=== PATIENT | male | born 1990 | race African-American/Black ===

== ENCOUNTER 2019-10-12 18:54 | Emergency (ER) | payer OTHER ==
[~2019-10-12] VITALS: Ht 175.3 cm; Wt 68.0 kg
[2019-10-12 19:20] LABS: URINE BILIRUBIN NEGATIVE (Negative); URINE BLOOD 1+ (Negative); URINE CLARITY CLEAR; URINE COLOR YELLOW; URINE GLUCOSE-RANDOM* NEGATIVE (Negative); URINE KETONES NEGATIVE (Negative); URINE NITRITE-REFLEX NEGATIVE (Negative); URINE PROTEIN (DIPSTICK) NEGATIVE (Negative); URINE SPECIFIC GRAVITY <= 1.005 (1.005-1.035); URINE UROBILINOGEN 0.2 E.U./dl (0.2-1.0)
[2019-10-12 19:24] LABS: URINE LEUKOCYTES-REFLEX 3+ (Negative)
[2019-10-12 19:36] LABS: SQUAMOUS 0-3 Few /LPF (0-3); URINE WBC-REFLEX >25 Many /HPF (0-5)
[2019-10-12 19:37] LABS: BACTERIA-REFLEX 1-9 Few /HPF (None Seen); CASTS None Seen /LPF (None Seen); CRYSTALS None Seen /LPF (None Seen); URINE RBC 0-2 Rare /HPF (0-2)
[2019-10-12 20:37] LABS: ABSOLUTE NEUTROPHILS 5.5 thou/uL (1.4-8.2); BASOPHILS 0.7 % (0.0-2.0); EOSINOPHILS 1.8 % (0.0-3.0); HEMATOCRIT 40.1 % (42.0-52.0); HEMOGLOBIN 13.3 gm/dL (14.0-18.0); LYMPHOCYTES 13.8 % (24.0-44.0); MCHC 33.2 g/dL (28.0-37.0); MCV 81.2 fL (80.0-100.0); MONOCYTES 10.6 % (1.0-8.0); PLATELET COUNT 427 thou/uL (150-400); POLYS 73.1 % (36.0-66.0); RBC 4.94 mil/uL (4.50-6.00); RDW 13.6 % (10.5-14.5); WBC 7.5 thou/uL (4.0-11.0)
[2019-10-12 20:46] LABS: CALCIUM 9.3 mg/dL (8.5-10.1); CREATININE 0.7 mg/dL (0.7-1.3)
[2019-10-12 20:52] LABS: ALBUMIN 3.2 g/dL (3.4-5.0); TOTAL BILIRUBIN 0.2 mg/dL (0.2-1.0); TOTAL PROTEIN 8.4 g/dL (6.4-8.2)
[2019-10-12] MEDS ORDERED: ONDANSETRON HCL4 M2 PO (21:59)
[2019-10-12] MEDS ORDERED: BACTRIM DS TAB1 EACH PO (21:59)
[2019-10-12] MEDS ORDERED: MIRALAX17 GM PO (22:06)
[2019-10-12 22:19] VITALS: BP 137/87
== END 2019-10-12 22:31 | disposition home or self-care (01) ==
LOC: ER 18:54
PROVIDERS: Emergency Medicine; Physician Assistant
DX: N39.0 Urinary tract infection, site not specified (principal); K59.00 Constipation, unspecified; R11.2 Nausea with vomiting, unspecified; R30.0 Dysuria; R31.9 Hematuria, unspecified

== ENCOUNTER 2019-11-17 09:28 | Emergency (ER) | payer OTHER ==
[~2019-11-17] VITALS: Ht 172.7 cm; Wt 63.5 kg
[~2019-11-17 09:28] MED LIST: BACTRIM DS TAB1 EACH PO; MIRALAX17 GM PO; ONDANSETRON HCL4 M2 PO
[2019-11-17 10:21] LABS: URINE BILIRUBIN NEGATIVE (Negative); URINE BLOOD 3+ (Negative); URINE CLARITY CLOUDY; URINE COLOR YELLOW; URINE GLUCOSE-RANDOM* NEGATIVE (Negative); URINE KETONES NEGATIVE (Negative); URINE NITRITE-REFLEX NEGATIVE (Negative); URINE PROTEIN (DIPSTICK) 2+ (Negative); URINE SPECIFIC GRAVITY 1.025 (1.005-1.035)
[2019-11-17 10:22] LABS: URINE LEUKOCYTES-REFLEX 3+ (Negative)
[2019-11-17 10:48] LABS: CASTS None Seen /LPF (None Seen); CRYSTALS None Seen /LPF (None Seen); SQUAMOUS 0-3 Few /LPF (0-3); URINE RBC >20 Many /HPF (0-2)
[2019-11-17 10:49] LABS: BACTERIA-REFLEX >30 Many /HPF (None Seen); WBC CLUMPS Packed (None Seen)
[2019-11-17 11:31] LABS: HEMOGLOBIN 10.8 gm/dL (14.0-18.0); MCH 26.6 pg (26.0-34.0); MCHC 33.7 g/dL (28.0-37.0); PLATELET COUNT 516 thou/uL (150-400); RBC 4.06 mil/uL (4.50-6.00); RDW 14.3 % (10.5-14.5); WBC 8.5 thou/uL (4.0-11.0)
[2019-11-17 11:45] LABS: CALCIUM 8.7 mg/dL (8.5-10.1); CREATININE 0.6 mg/dL (0.7-1.3); POTASSIUM 3.7 mmol/L (3.5-5.1)
[2019-11-17 12:49] LABS: ABSOLUTE NEUTROPHILS 6.5 thou/uL (1.4-8.2)
[2019-11-17 12:50] LABS: ANISOCYTOSIS 1+
[2019-11-17] MEDS ORDERED: MACROBID 100 M100 M1 PO (15:20)
[2019-11-17] MEDS ORDERED: ZOFRAN4 MG PO (15:20)
[2019-11-17 15:47] VITALS: BP 118/82
== END 2019-11-17 15:47 | disposition home or self-care (01) ==
LOC: ER 09:28
PROVIDERS: Emergency Medicine
DX: N10 Acute pyelonephritis (principal); Z79.899 Other long term (current) drug therapy

== ENCOUNTER 2019-12-01 00:21 | Inpatient (IN) | payer OTHER ==
[2019-12-01] VITALS (7 sets, daily range): BP systolic 108–169; BP diastolic 70–112
[~2019-12-01] VITALS: Ht 172.7 cm; Wt 50.8 kg
[~2019-12-01 00:21] MED LIST changes: +MACROBID 100 M100 M1 PO; +ZOFRAN4 MG PO
[2019-12-01 01:24] LABS: ABSOLUTE NEUTROPHILS 9.2 thou/uL (1.4-8.2); BASOPHILS 0.7 % (0.0-2.0); EOSINOPHILS 0.5 % (0.0-3.0); HEMATOCRIT 35.1 % (42.0-52.0); HEMOGLOBIN 11.8 gm/dL (14.0-18.0); LYMPHOCYTES 9.7 % (24.0-44.0); MCH 26.8 pg (26.0-34.0); MCHC 33.7 g/dL (28.0-37.0); MCV 79.7 fL (80.0-100.0); MONOCYTES 11.5 % (1.0-8.0); PLATELET COUNT 563 thou/uL (150-400); POLYS 77.6 % (36.0-66.0); RBC 4.41 mil/uL (4.50-6.00); RDW 15.2 % (10.5-14.5); WBC 11.8 thou/uL (4.0-11.0)
[2019-12-01 01:27] LABS: CALCIUM 9.1 mg/dL (8.5-10.1); CREATININE 0.6 mg/dL (0.7-1.3); MAGNESIUM 2.2 mg/dL (1.8-2.4); POTASSIUM 4.3 mmol/L (3.5-5.1)
[2019-12-01 02:31] LABS: URINE BILIRUBIN 3+ (Negative); URINE BLOOD 2+ (Negative); URINE CLARITY TURBID; URINE COLOR GREEN; URINE GLUCOSE-RANDOM* NEGATIVE (Negative); URINE KETONES TRACE (Negative); URINE NITRITE-REFLEX NEGATIVE (Negative); URINE PROTEIN (DIPSTICK) 3+ (Negative); URINE SPECIFIC GRAVITY 1.025 (1.005-1.035); URINE UROBILINOGEN >= 8.0 E.U./dl (0.2-1.0)
[2019-12-01 02:44] LABS: URINE LEUKOCYTES-REFLEX 2+ (Negative)
[2019-12-01 02:45] LABS: BACTERIA-REFLEX >30 Many /HPF (None Seen); CASTS None Seen /LPF (None Seen); CRYSTALS None Seen /LPF (None Seen); MUCUS >6 Heavy strn/LPF (None Seen); SQUAMOUS 4-10 Moderate /LPF (0-3); URINE RBC >20 Many /HPF (0-2); URINE WBC-REFLEX >25 Many /HPF (0-5); WBC CLUMPS Many (None Seen); YEAST-REFLEX Present (None Seen)
[2019-12-01 02:47] LABS: AMP/METHAMP Negative (Negative); BARBITURATES Negative (Negative); BENZODIAZEPINES Negative (Negative); COCAINE Negative (Negative); METHADONE Negative (Negative); OPIATES Negative (Negative); PCP Negative (Negative)
[2019-12-01 05:00] LABS: APTT 33.2 Seconds (24.5-32.8); PROTIME 10.6 Seconds (9.3-11.4)
--- NOTE | 2019-12-01 06:22 | NUR ---
ADMITTED TO THE UNIT AT APPROXIMATELY 0600. PT IS A/O X4 AND UP ADLIB. C/O PAIN AND NAUSEA. PAIN AND NAUSEA MEDICATIONS GIVEN DIRECTED. ADMISSION COMPLETED AND DOCUMENTED. CALL LIGHT IS WITHIN REACH. WILL CONTINUE TO MONITOR.
--- NOTE | 2019-12-01 10:46 | NUR ---
ASSUMED CARE AT 0700. PT IS ALERT AND ORIENTED. NO COMPLAINTS. VSSA/RA. GI/- PT IS NPO. REPORTS OF GREEN URINE AND DIARHEA. PIV INFUSING. PAIN MEDS GIVEN ORDERED. PT IS STEADY 0N FEET. EDUCATED HIM TO CALL IF NEEDS ARISE. CALL LIGHT WITHIN REACH. WILL CONITNUE TO MONITOR. WAITING TO HEAR PLAN FOR TODAY...
--- NOTE | 2019-12-01 13:55 | NUR ---
PT ADMITTED RELATED TO ABDOMINAL PAIN, GREEN URINE, DIARRHEA, VOMMITTING. CM REVIEWED CHART AND SPOKE WITH CARE TEAM. CM CALLED AND SPOKE WITH PT AT BEDSIDE THIS DAY. PT APPEARED TO BE A&O X4. CM ROLE INTRODUCED. PT INDICATED HE LIVES IN AN APARTMENT WITH HIS FATHER WITH A FULL FLIGHT OF STEPS TO ENTER AND NONE INSIDE. 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 PT INDICATED NO INSURANCE AND NO PCP. PT WAS GIVEN A [employer] [facility] PACKET. PT INDICATED THAT HE COULD AFFORD TO FILL SCRIPTS IF GIVEN ANY UPON DC. PT INDICATED HE ANTICPATES RETURN HOME ONCE MEDICALLT STABLE. CM TO FOLLOW INDICATED WITH DC PLANNING.
--- NOTE | 2019-12-02 03:01 | NUR ---
ASSUMED CARE OF PT AT 1900. PT IS A/O X4. UP AD ANAID. C/O PAIN TO TESTICLES AND LOWER ABDOMEN ALONG WITH NAUSEA ASSOCIATED WITH PAIN. PRN PAIN AND NAUSEA MEDICATIONS GIVEN DIRECTED. PT IS LYING IN HIS BED AT THIS TIME AND APPEARS TO BE SLEEPING. CALL LIGHT IS WITHIN REACH. WILL CONTINUE TO MONITOR.
[2019-12-02 08:03] VITALS: BP 123/73
[2019-12-02 16:03] LABS: HEMATOCRIT 35.4 % (42.0-52.0); HEMOGLOBIN 11.5 gm/dL (14.0-18.0); MCHC 32.6 g/dL (28.0-37.0); MCV 79.9 fL (80.0-100.0); RBC 4.43 mil/uL (4.50-6.00); RDW 15.4 % (10.5-14.5); WBC 9.7 thou/uL (4.0-11.0)
[2019-12-02 16:14] LABS: CREATININE 0.6 mg/dL (0.7-1.3); MAGNESIUM 2.2 mg/dL (1.8-2.4)
--- NOTE | 2019-12-02 16:55 | NUR ---
ASSUMED CARE OF PATIENT AT SHIFT CHANGE. ASSESSMENT CHARTED. MEDS GIVEN PER MAY. PATIENT IS TACHYCARDIC. PATIENT WAS ACCIDENTALLY PUT ON TELEMETRY AND HIS HR INCREASED TO 150'S FOR APPROX 5 MINUTES. PROVIDER WAS CALLED AND AN EKG WAS PERFORMED AND REVEALED PATIENT IN NSR. LABS WERE DRAWN ORDERED. FLUIDS AND ABX INFUSING AT 150/HR ON L AC. IV SITE INTACT W NO ISSUES AFTER REDRESSING AND REPOSITIONING. PATIENT IS UP INDEPENDENLY AND CONTINUES TO VOICE ABDOMINAL PAIN AND DISCOMFORT. PRN PAIN MEDS ADMINISTERED ORDERED. PATIENT IS ON FULL LIQUIDS; PROVIDER SPOKE TO PATIENT ABOUT AN ADVANCE TOLERATED DIET. FAMILY AT BEDSIDE, VOICES NO OTHER NEEDS. WILL CONTINUE TO MONITOR AND FOLLOW PLAN OF CARE
[2019-12-02 17:31] VITALS: BP 145/92
[2019-12-02 23:35] VITALS: BP 113/73
--- NOTE | 2019-12-03 04:40 | NUR ---
ASSUMED CARE OF PT AT 1900. PT IS A/O X4 AND UP AD ANAID. C/O PAIN. PRN PAIN MEDICATION GIVEN DIRECTED. DENIES ANY OTHER DISCOMFORT. VSS. CALL LIGHT IS WITHIN REACH. WILL CONTINUE TO MONITOR.
[2019-12-03 08:51] VITALS: BP 122/75
--- NOTE | 2019-12-03 11:48 | EKG ---
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
[2019-12-03 15:44] VITALS: BP 134/80
[2019-12-03 19:44] VITALS: BP 120/87
--- NOTE | 2019-12-03 21:41 | NUR ---
PT RESTING IN BED IVF AND ANTIBIOTICS INTACT. PT REQUESTED PRN FOR TESTICLE PAIN AND PROVIDED. PT TALKING ON PHONE, SMILING, WATCHING BASKETBALL. PT REQUESTED APPLE JUICE AND PROVIDED. PT BS HYPERACTIVE. PT INDEP WITH ADLS.
[2019-12-04 05:28] LABS: HEMATOCRIT 35.5 % (42.0-52.0); HEMOGLOBIN 11.5 gm/dL (14.0-18.0); MCH 26.3 pg (26.0-34.0); MCHC 32.6 g/dL (28.0-37.0); MCV 80.6 fL (80.0-100.0); RBC 4.4 mil/uL (4.50-6.00); RDW 15.4 % (10.5-14.5); WBC 11.6 thou/uL (4.0-11.0)
[2019-12-04 05:38] LABS: CALCIUM 8.7 mg/dL (8.5-10.1); CREATININE 0.6 mg/dL (0.7-1.3); POTASSIUM 4.3 mmol/L (3.5-5.1)
--- NOTE | 2019-12-04 05:40 | NUR ---
PT AWAKENED TWICE THROUGHOUT THE NIGHT, BED ALARM SOUNDED. PT WAS WANDERING IN HIS ROOM. PT VERBALLY REDIRECTED TO REST OR WATCH TV AND COMPLIED. PT WAS NOT INCONTINENT WHEN GETTING OOB.
[2019-12-04 07:24] VITALS: BP 119/76
--- NOTE | 2019-12-04 18:38 | NUR ---
Assumed patient care at 0715. Vital signs stable, LSCTA, ABD slightly distended and tender, skin is clean, warm, dry and intact. Patient has been complaining of "level six testicular pain." Pain is partially improved with Morphine 2mg per IV push. Patient to have Colonoscopy in am. He has started on the prep at approximately 1600. Patient is pleasant and cooperative. A Sterile UA cup was left in his room, as UA is ordered. He understands to call RN when it is ready for the lab. No concerns with this patient. Report given to on-coming nurse.
[2019-12-04 20:32] LABS: URINE BILIRUBIN NEGATIVE (Negative); URINE BLOOD 3+ (Negative); URINE CLARITY SL CLOUDY; URINE COLOR YELLOW; URINE GLUCOSE-RANDOM* NEGATIVE (Negative); URINE KETONES NEGATIVE (Negative); URINE LEUKOCYTES 3+ (Negative); URINE NITRITE NEGATIVE (Negative); URINE PROTEIN (DIPSTICK) NEGATIVE (Negative); URINE SPECIFIC GRAVITY 1.015 (1.005-1.035); URINE UROBILINOGEN 0.2 E.U./dl (0.2-1.0)
[2019-12-04 20:33] LABS: CASTS None Seen /LPF (None Seen); CRYSTALS None Seen /LPF (None Seen); SQUAMOUS 4-10 Moderate /LPF (0-3)
[2019-12-04 20:34] LABS: URINE WBC >25 Many /HPF (0-5)
[2019-12-04 20:36] LABS: YEAST Present (None Seen)
--- NOTE | 2019-12-05 04:14 | NUR ---
PATIENT ALERT X 4. SKIN WARM AND DRY. RESP EVEN AND UNLABORED. IV SITE HEALTHY. UP AD ANAID IN ROOM. GOING TO [facility] AND HAVING SMALL YELLOW BM'S. PATIENT DRINKING BOWEL PREP. IS VERY SLOW ABOUT DRINKING HAD IT ALL DRANK ABOUT 0230 THIS AM. ON ROOM AIR. IS NPO FOR COLONOSCOPY IN AM. NO SKIN ISSUES. NO EDEMA NOTED. HAVING BM'S BUT STOOL VERY LIGHT YELLOW CONSISTANCY. PAIN MED GIVEN AT 0230 FOR ABDOMINAL PAIN. SLEEPING WELL. CONT PLAN OF CARE. IV CONT. AT 100CC /HOUR. REMAINS NPO.
[2019-12-05 05:01] VITALS: BP 111/60
[2019-12-05 07:08] VITALS: BP 109/59
--- NOTE | 2019-12-05 11:54 | NUR ---
CARE TEAM INDICATED THAT PT WILL LIKELY BE MEDICALLY STABLE TO DISCHARGE HOME THIS DAY FOLLOWING HIS COLONOSCOPY. CARE TEAM INDICATED THAT PT WILL LIKELY BE SWITCHED TO ORAL CIPRO AND FLAGYL AT ME. CM PROVIDED PT WITH [facility] PACKET WITH RESOURCES FOR FOLLOW UP CARES UPON ME. PT WAS ASSESSED BY MICHAEL RAYA AND WAS DETERMINED NOT TO BE ELIGABLE FOR ANY KIND OF FINIACIAL ASSISTANCE PROGRAMS AT THIS TIME. NO OTHER CM INTERVENTION INDICATED.
[2019-12-05 14:59] VITALS: BP 110/60
[2019-12-05 15:01] VITALS: BP 123/73
--- NOTE | 2019-12-05 17:00 | P ---
[facility] [place] [address] PROCEDURE REPORT Name: BRITTANY BARNETT Room #: 456-P ADM IN M.R.#: [id number] Admission: 12/01/19 Attend Phys: Simón Perez MD Discharge: Date of : 89 Report #: [id number] THIS REPORT FOR: cc: BHARATH - No family physician/PCP BHARATH - No family physician/PCP Shaun Packer MD ~ CC: Simón SINHA physician/PCP DATE OF SERVICE: 12/05/2019 PROCEDURE PERFORMED: Colonoscopy with biopsies. HISTORY OF PRESENT ILLNESS: The patient is a 29-year-old male with nausea, vomiting, abdominal pain, was admitted on 11/30. He also had discoloration of his urine and passing air in his urine as well. He has had weight loss of approximately 30 pounds in the last [address] scan of the abdomen and pelvis showing marked progression of inflammation involving the terminal ileum and small bowel, cecum also is markedly inflamed, distal small bowel fluid filled most likely secondary to ileus. No high-grade obstruction was noted. Diffuse thickening and enhancement of the bladder wall was also noted. 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 No obvious abscess was noted. The patient has been started on IV steroids with improvement for possible Crohn's disease. No previous history of Crohn's disease. No previous history of colonoscopy. DESCRIPTION OF PROCEDURE: The risks and benefits of the procedure were explained to the patient, those risks including but not limited to bleeding, perforation, the risk of sedation. He understood these risks and gave informed consent. Sedation was given using propofol per anesthesia. Next, a digital rectal exam was initially performed, which was normal. Next, using a standard Olympus colonoscope, the scope was placed in the patient's anus and advanced under direct vision into what appears to be proximal ascending colon or cecal area. The overall prep was excellent. The anatomy was distorted due to inflammation. It appears to involve the cecum and ileocecal valve with ulcerations. I did try to advance the scope into this area, but was unsuccessful. I suspect it is inflammation involving the cecum and ileocecal valve with a stricture. Several biopsies were obtained in this area. The remaining ascending colon was normal. Transverse, descending and sigmoid colon were all normal. No evidence of colitis or inflammation in these areas. The rectal mucosa was normal. On retroflexion, small nonbleeding internal hemorrhoids were noted. The scope was then withdrawn and the procedure terminated. The patient tolerated the procedure well. IMPRESSION: [facility] [address] [place] [address] PROCEDURE REPORT Name: BRITTANY BARNETT Room #: 456-P [facility] IN M.R.#: [id number] Admission: 12/01/19 Attend Phys: Simón Perez MD Discharge: Date of : 89 Report #: [id number] 1. Inflammation involving likely the cecum and ileocecal valve, which distorts the anatomy, difficult to tell exact location, suspect this is due to Crohn's disease as there are areas of ulceration and inflammation. Biopsies were obtained. 2. Otherwise, normal-appearing colon. 3. Small internal hemorrhoids. RECOMMENDATIONS: 1. Await biopsy results. 2. Continue IV steroids. 3. We will discuss further with Dr. 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 Eventually, the patient will need likely Remicade or other aggressive therapy. Thank you for allowing me to participate in his care. <ELECTRONICALLY SIGNED> By: Shaun Packer MD 12/05/19 1700 1256 [id number] Shaun Packer MD /nt
--- NOTE | 2019-12-05 18:34 | NUR ---
Assumed patient care at 0715. Vital signs stable, LSCTA, ABD soft and tender to palpitation. Patient has had Morphine IV push for Testicular Pain as requested with partial effectiveness. Patient off unit from 1100 to 1330 for Colonoscopy. New Diagnosis: Chron's Disease. Patient was started on a Fiber Restricted Diet this evening. Patient has had no adverse reactions to IV ABT Therapy. He is pleasant and cooperative. Will report to on-coming nurse.
[2019-12-05 20:08] VITALS: BP 119/80
--- NOTE | 2019-12-06 02:22 | NUR ---
ASSUMED CARE OF PT AT 1900HRS. PT AOX4 AND LETS NEEDS BE KNOWN. PT IS UP AD ANAID. PT IS POST COLONOSCOPY DAY 0 AND NO COMPLICATION NOTED. PT IS TOLERATING FIBER RESTRICTED DIET. PT REPORTS SOME SCROTAL PAIN BUT DENIES NAUSEA OR SOA. PRN PAIN MEDS PROVIDED. PT WAS ABLE TO GET COMFORTABLE AND SLEEP PART OF THE SHIFT. VSS AND NO S/S OF ACUTE DISTRESS. WILL CONTINUE TO MONITOR.
[2019-12-06 07:34] VITALS: BP 98/61
--- NOTE | 2019-12-06 10:30 | NUR ---
CARE TEAM INDICATED THAT PT WAS DIAGNOSED WITH CROHN'S DISEASE YESTERDAY. GI INDICATED THAT PT WILL NEED TO BE ON MEDICATIONS RELATED TO THIS CONDITION FOR THE REST OF HIS LIFE. GI ASKED THAT PT BE REASSESSED FOR MEDICAID ELIGIBILITY. CM CONTACTED [facility] TO REASSESS. CM TO FOLLOW INDICATED WITH DC PLANNING.
[2019-12-06 16:22] VITALS: BP 127/82
--- NOTE | 2019-12-06 18:06 | PATH ---
[facility] [address] [place] [address] PATHOLOGY RPT PROCEDURE Name: ANIBALBRITTANY L Room #: 456-P ADM IN M.R.#: [id number] Admission: 12/01/19 Date of : 89 Discharge: Report #: [id number] Path Case #: [id number] [facility] Accession Number: [id number] . 01 Material submitted: . cecum - BX OF CECUM/ILEOCECAL VALVE INFLAMMATION . 01 Clinical history: . NAUSEA, VOMITING, ABD PAIN, DIARRHEA, ENTEROVESICAL FISTULA . 02 Diagnosis: Large intestine mucosa, cecum/ileocecal valve inflammation, endoscopic biopsy: - Mild active colitis, see comment. - Negative for dysplasia or malignancy. (IUV:jennifer; 12/06/2019) QMS 12/06/2019 1447 Local . 02 Comment: Sections of the colonic mucosa designated "cecum/ileocecal valve inflammation" show focal cryptitis, and a moderately cellular lamina propria composed predominantly of lymphocytes and plasma cells and occasional eosinophils. Surface ulceration is not identified. There are no crypt abscesses, granulomas or viral inclusions. The process affects all the fragments with a similar intensity. Given the description, the differential diagnosis includes an acute self-limied episode of colitis, infectious-type of colitis, medication or drug induced colitis, diverticulitis, as well as early inflammatory bowel disease especially involvement by Crohn's disease cannot be excluded. Please correlate clinically. (IUV:jennifer; 12/06/2019 . 02 Electronically signed: . Leilani Da Silva MD, Pathologist NPI- [id number] . 01 Gross description: . Received in formalin labeled "Brittany Barnett BX of cecum/ileocecal valve inflammation" is a 0.8 x 0.5 x 0.1 cm aggregate of castro-brown soft tissue fragments. The specimen is submitted entirely in A1. ([facility] 12/05/2019) [facility] 12/05/2019 1754 Local . 02 Pathologist provided ICD-10: K52.9 . 02 CPT . [id number] [address] [address] PATHOLOGY RPT PROCEDURE Name: BRITTANY BARNETT Room #: 456-P [facility] IN M.R.#: [id number] Admission: 12/01/19 Date of : 89 Discharge: Report #: [id number] Path Case #: [id number] Specimen Comment: A courtesy copy of this report has been sent to [phone] Specimen Comment: [phone] Specimen Comment: Report sent to / DR STEWART Performed at: [address], [place], [place] [id number] MD Ady Becker MD Phone: [phone] Performed at: [address] [id number] MD Leilani Da Silva MD Phone: [phone]
--- NOTE | 2019-12-06 19:36 | NUR ---
Assumed pt care this am, pt is up ad navi with a steady gait. Pain is managed with medications, complete relief is noted, very low pain level was stated later on in the pm but did not want any pain meds. No nausea or vomiting has been noted, poc followed with no signs or verbalizations of distress noted. POC followed, diet and medications are well tolerated well. Spoke GI, endorsed tothe night nurse to ask the pt is he will be able to come back to the ER after dc for TB spot to be read. Endorsed to the night nurse.
[2019-12-06 20:08] VITALS: BP 121/82
[2019-12-07 06:13] LABS: HEMATOCRIT 34.8 % (42.0-52.0); HEMOGLOBIN 11.6 gm/dL (14.0-18.0); MCH 27.1 pg (26.0-34.0); MCHC 33.4 g/dL (28.0-37.0); MCV 81.1 fL (80.0-100.0); RBC 4.3 mil/uL (4.50-6.00); RDW 15.4 % (10.5-14.5); WBC 14.3 thou/uL (4.0-11.0)
--- NOTE | 2019-12-07 06:47 | NUR ---
PROGRESS PT A/O X4 UP AD ANAID. RATES PAIN A 5 TO 7 TAKING 2MG MORPHINE NEEDED SPARINGLY FOR PAIN. HAD 3 LOOSE STOOLS LAST NIGHT. BOWEL SOUNDS POSITIVE PASSING GAS. SKIN C/D/I IVF'S AND IV ANTIBIOTICS ADMINISTERED ORDERED. PT DRINKING LARGE AMOUNTS OF APPLE JUICE LUNGS CLEAR HOPES TO DC HOME SOON.
[2019-12-07 06:48] LABS: CALCIUM 8.7 mg/dL (8.5-10.1); CREATININE 0.7 mg/dL (0.7-1.3); POTASSIUM 3.7 mmol/L (3.5-5.1)
[2019-12-07 07:28] VITALS: BP 120/84
--- NOTE | 2019-12-07 13:41 | NUR ---
GI INDICATED THAT THEY ANTICIPATE SWITCHING PT TO PO [facility] TOMORROW. [facility] COMPLETED MEDICAID APPLICATION AND DISBILITY. CM CALLED [facility] AND THEY INDICATED THEY NEEDED A REFERRAL SENT OVER AND THAT THEY WOULD THEN CONTACT PT TO SET UP APPOINTMENT. CM FAXED CLINICAL INFO AND DEMOGRAPHICS. CM CAN VOUCHER MEDS UPON DC IF NEEDED. CM TO FOLLOW INDICATED WITH DC PLANNING.
--- NOTE | 2019-12-07 14:38 | NUR ---
PT'S DISCHARGE IS BEING PREPARED AT THIS TIME, PER PT IS TO BE DISCHARGED TOMORROW INSTEAD DUE TO USAGE OF IV PREDNISONE, WHICH IS TO BE SWITCHED TO ORAL FORM. PT COMPLAINED OF SCROTAL PAIN THIS MORNING, MORPHINE WAS PROVIDED. NO OTHER ISSUES AT THIS TIME. PT STATED URINATING INDEPENDANTLY 30MIN PRIOR TO RN ARRIVING IN THE ROOM, PT REPORTED THAT URINE COLOR WAS RETURNING TO NORMAL. WILL CONTINUE TO MONITOR AND UPDATE NEEDED
--- NOTE | 2019-12-08 01:08 | NUR ---
ASSUMED CARE OF PT AT 1900. PT IS A/O X4. C/O PAIN TO SCRODUM. PRN PAIN MEDICATION GIVEN DIRECTED. NO FURTHER COMPLAINTS. VSS. PT IS CURRENTLY LYING IN HIS BED WATCHING TV. CALL LIGHT IS WITHIN REACH. WILL CONTINUE TO MONITOR.
[2019-12-08 07:08] LABS: HAV IgM AB (ANTI-HAV IgM) Negative (Negative); HEPATITIS B SURFACE AG Negative (Negative); HEPATITIS C VIRUS AB <0.1 (0.0-0.9)
[2019-12-08 07:28] VITALS: BP 134/87
[2019-12-08] MEDS ORDERED: FLUCONAZOLE 10100 MG PO (10:08)
[2019-12-08] MEDS ORDERED: CIPRO500 M1 PO (10:09)
[2019-12-08] MEDS ORDERED: PREDNISONE 20 M20 M1 PO (10:10)
[2019-12-08] MEDS ORDERED: PROTONIX40 M2 PO (10:13)
[2019-12-08] MEDS ORDERED: ZOFRAN4 MG PO (10:13)
[2019-12-08 10:24] VITALS: BP 134/87
--- NOTE | 2019-12-08 11:28 | NUR ---
Assumed pt care this am, VS stable. Pain is managed with medications, diet and medications are tolerated well. No N/v and diarrhea noted for this shift. POC followed with with no signs or verbalizations of distress noted. DC orders given, instructions given to the pt. Awaiting medication to be filled as per case management, pending dc.
[2019-12-08 13:16] VITALS: BP 134/87
--- NOTE | 2019-12-08 14:08 | NUR ---
CARE TEAM INDICATED THAT PT IS MEDICALLY STABLE TO DC HOME THIS DAY. CM VOUCHERED PT'S MEDS AT THE OP PHARMACY AT A TOTAL OF $61.88. CM PROVIDED PT WITH THE NUMBER OF THE GI CLINIC AT [place] WHO WILL BE CONTACTING HIM TO SET UP APPOINTMENT FOR FOLLOW UP CARES UPON DC. PT TO DC HOME TO SELF CARE. NO OTHER CM INTERVENTION INDICATED. CASE CLOSED.
== END 2019-12-08 14:35 | disposition home or self-care (01) | DRG 698 ==
LOC: ER 00:21 → 4W 03:31 → EROBS 03:31 → 4W 05:32
PROVIDERS: Emergency Medicine; Internal Medicine; Nurse Practitioner; Specialist; ADMIT Hospitalist; ATTEND Hospitalist
PROC: 0DBH8ZX Excision of Cecum, Via Natural or Artificial Opening Endoscopic, Diagnostic (ICD-10-PCS; principal; 2019-12-05)
DX: N32.1 Vesicointestinal fistula (principal); E43 Unspecified severe protein-calorie malnutrition; K50.00 Crohn's disease of small intestine without complications; N39.0 Urinary tract infection, site not specified; N36.0 Urethral fistula; Z68.1 Body mass index [BMI] 19.9 or less, adult; K64.8 Other hemorrhoids; F12.90 Cannabis use, unspecified, uncomplicated; R63.4 Abnormal weight loss; B96.20 Unspecified Escherichia coli [E. coli] as the cause of diseases classified elsewhere; Z20.828 Contact with and (suspected) exposure to other viral communicable diseases; K52.9 Noninfective gastroenteritis and colitis, unspecified; D50.9 Iron deficiency anemia, unspecified; Z79.899 Other long term (current) drug therapy
CPT/HCPCS: 10040; 62110; 62900; 70005

== ENCOUNTER 2020-01-03 00:17 | Inpatient (IN) | payer MEDICAID ==
[~2020-01-03] VITALS: Ht 172.7 cm; Wt 54.4 kg
[~2020-01-03 00:17] MED LIST changes: +CIPRO500 M1 PO; +FLUCONAZOLE 10100 MG PO; +PREDNISONE 20 M20 M1 PO; +PROTONIX40 M2 PO
[2020-01-03 00:26] VITALS: BP 139/101
[2020-01-03 01:26] LABS: HEMATOCRIT 40.9 % (42.0-52.0); HEMOGLOBIN 13.3 gm/dL (14.0-18.0); MCH 27.3 pg (26.0-34.0); MCHC 32.6 g/dL (28.0-37.0); MCV 83.8 fL (80.0-100.0); PLATELET COUNT 605 thou/uL (150-400); RBC 4.88 mil/uL (4.50-6.00); RDW 17.8 % (10.5-14.5); WBC 10.6 thou/uL (4.0-11.0)
[2020-01-03 01:27] LABS: URINE BILIRUBIN 2+ (Negative); URINE BLOOD 3+ (Negative); URINE CLARITY TURBID; URINE COLOR YELLOW; URINE GLUCOSE-RANDOM* NEGATIVE (Negative); URINE KETONES NEGATIVE (Negative); URINE PROTEIN (DIPSTICK) 3+ (Negative); URINE SPECIFIC GRAVITY >= 1.030 (1.005-1.035); URINE UROBILINOGEN 0.2 E.U./dl (0.2-1.0)
[2020-01-03 01:28] LABS: ANION GAP 6 mmol/L (7-16); BUN 13 mg/dL (7-18); CALCIUM 9.1 mg/dL (8.5-10.1); CHLORIDE 95 mmol/L (98-107); CO2 28 mmol/L (21-32); CREATININE 0.7 mg/dL (0.7-1.3); GLUCOSE 111 mg/dL (74-106); POTASSIUM 4.2 mmol/L (3.5-5.1); SODIUM 129 mmol/L (136-145)
[2020-01-03 01:32] LABS: URINE LEUKOCYTES-REFLEX 2+ (Negative); URINE NITRITE-REFLEX POSITIVE (Negative)
[2020-01-03 01:34] LABS: ALBUMIN 3.2 g/dL (3.4-5.0); DIRECT BILIRUBIN < 0.1 mg/dL (<0.1-0.2); SGOT 11 U/L (15-37); SGPT 24 U/L (30-65); TOTAL BILIRUBIN 0.2 mg/dL (0.2-1.0); TOTAL PROTEIN 8.1 g/dL (6.4-8.2)
[2020-01-03 01:44] LABS: CASTS None Seen /LPF (None Seen); CRYSTALS None Seen /LPF (None Seen); MUCUS 4-6 Moderate strn/LPF (None Seen); SQUAMOUS 4-10 Moderate /LPF (0-3); URINE RBC >20 Many /HPF (0-2); URINE WBC-REFLEX >25 Many /HPF (0-5); WBC CLUMPS Packed (None Seen)
[2020-01-03 02:58] LABS: ABSOLUTE NEUTROPHILS 7.7 thou/uL (1.4-8.2)
[2020-01-03 02:59] LABS: ANISOCYTOSIS 1+; PLATELET ESTIMATE INCREASED; POIKILOCYTOSIS 1+
[2020-01-03 12:44] VITALS: BP 130/84
[2020-01-03 20:00] VITALS: BP 121/75
[2020-01-03 21:38] VITALS: BP 103/57
[2020-01-04 01:01] VITALS: BP 103/57
--- NOTE | 2020-01-04 02:49 | NUR ---
Assumed pt care at 1900.Pt is alert and oriented. No sign of distress noted in pt. Pt denies pain. Pt is ambulatory. Pt is laying in bed stable. Assessment completed and documented. Admission assessment and data completed. Scheduled meds administered. Pain med administered upon request . Continue to monitor pt. No further needs at this time.
[2020-01-04 04:27] VITALS: BP 108/58
[2020-01-04 06:32] LABS: HEMATOCRIT 35.5 % (42.0-52.0); MCH 28.4 pg (26.0-34.0); MCHC 33.9 g/dL (28.0-37.0); MCV 83.8 fL (80.0-100.0); RBC 4.23 mil/uL (4.50-6.00); RDW 17.1 % (10.5-14.5); WBC 9.2 thou/uL (4.0-11.0)
[2020-01-04 06:46] LABS: CREATININE 0.8 mg/dL (0.7-1.3); POTASSIUM 3.9 mmol/L (3.5-5.1)
[2020-01-04 08:18] VITALS: BP 138/84
--- NOTE | 2020-01-04 12:04 | NUR ---
ASSESSMENT: CM REVIEWED CHART AND SPOKE WITH ATTENDING. PT HAS ENTEROVESICAL FISTULA AND IS CURRENTLY ON IV ANBX AND LIKELY NEEDING SURGERY. SURGEON STATING THAT PATIENT MAY NEED TO TRANSFER TO FACILITY WITH UROLOGY SERVICES DUE TO SUSPECTED INJURY TO URETER AND WE HAVE NO UROLOGY SERVICES AVAILABLE AT [facility]. CM DISCUSSED WITH PATIENT AND CONFIRMED HE HAS NO INSURANCE. PT IS OPEN FOR TRANSFER TO [facility] OR [facility]. MEGAN CONTACTED [facility] TRANSFER TEAM [phone] AND SPOKE WITH SHERRIE. SHE STATES [facility] IS CLOSED TO TRANSFERS AT THIS TIME BUT THEY COULD ATTEMPT TO CONSIDER [facility] BUT WOULD HAVE TO GET PRIOR APPROVAL. CM FAXED REFERRAL AND AWAITING A CALL BACK. CM ALSO CONTACTED [facility] AND AWAITING A CALL BACK FROM [employer] PROGRAM ASSISTANT AT THIS TIME.
--- NOTE | 2020-01-04 14:57 | NUR ---
PT ALERT AND ORIENTED TIMES FOUR. VSS, IVF INFUSING PER ORDER. PT C/O PAIN PRN PAIN MEDICATIONS GIVEN WITH GOOD RELEIF. PT TOLERATES A FULL LIQUID DIET. PT UP AB ANAID WITH STEADY GAIT. WILL CONTINUE TO MONITOR.
[2020-01-04 16:17] VITALS: BP 127/70
[2020-01-04 18:05] VITALS: BP 116/73
--- NOTE | 2020-01-04 18:38 | NUR ---
PATIENT ARRIVED FROM SICU REPORT GIVEN TO THIS NURSE. PT ALERT XS 4 PATIENT STATES WANTS TO DISCHARGE WILL PUT IN CALL TO DR BARFIELD. LUNGS CTA BS'S + XS 4. WAS GIVEN FENTANYL IV PUSH ON SICU. PATIENT STATES NO PAIN . IV ABT STARTED AND IS INFUSING ORDERED. FULL LIQUID DIET BROUGHT TO PATIENT'S ROOM BUT HE DID NOT WANT. V.S.98.3 14 86 116/73 O2 SAT 100% RA.
--- NOTE | 2020-01-04 18:56 | NUR ---
SPOKE WITH DR BARFIELD AND PATIENT IS BEING TRANSFERRED TO [facility]. PATIENT HE WATCHING IV ABT INFUSED PATIENT DID NOT SAY ANYMORE ABOUT LEAVING.
[2020-01-04 20:01] VITALS: BP 126/76
--- NOTE | 2020-01-05 03:29 | NUR ---
MAHOGANY CERE OF PT AT 1900HRS. PT AOX4 AND LETS NEEDS BE KNOWN. PT IS UP AD ANAID. ABX TREATMENT CONTINUED. PTREPORTED PAIN AND WAS TREATED WITH PRN PAIN MEDS. PT WAS ABLE TO GET COMFORTABLE AND SLEEP PART OF THE SHIFT. VSS AND NO S/S OF ACUTE DISTRESS WILL CONTINUE TO MONITOR.
[2020-01-05 07:58] VITALS: BP 105/70
--- NOTE | 2020-01-05 09:28 | NUR ---
MEGAN CALLED THE [facility] THIS AM. [facility] STILL ON DIVERSION. [facility] DECLINED ADMISSION YESTERDAY. [facility] REACHING OUT TO [facility]. MEGAN CALLED AND SPOKE WITH CONCRETE POURING SUPERVISOR SOLANGE AT [facility] THIS AM AND SHE INDICATED THAT THEY ARE STILL ON DIVERSION, HOLDING IN THE ED, AND CAN'T ACCEPT PT FOR TRANSFER AT THIS TIME. CM TO UPDATE PT. CM TO CONTINUE TO TRY TO TRANSFER PT.
--- NOTE | 2020-01-05 10:22 | NUR ---
A/O *4, calm and pleasant. Patient asked to leave, refused to keep waiting to be transferred to another facility. Dr. Mccarthy is aware, agreeing to let the patient go on AMA. AMA signed. No n/v, vss. afebrile.
== END 2020-01-05 10:51 | disposition left against medical advice (07) | DRG 385 ==
LOC: ER 00:17 → EROBS 04:15 → 4W 21:38 → SICU 21:39 → 4W 01-04 17:45
PROVIDERS: Emergency Medicine; Nurse Practitioner Family; ADMIT Hospitalist; ATTEND Hospitalist
DX: K50.90 Crohn's disease, unspecified, without complications (principal); E43 Unspecified severe protein-calorie malnutrition; N32.1 Vesicointestinal fistula; N39.0 Urinary tract infection, site not specified; Z68.1 Body mass index [BMI] 19.9 or less, adult; B95.2 Enterococcus as the cause of diseases classified elsewhere; Z53.29 Procedure and treatment not carried out because of patient's decision for other reasons; Z79.899 Other long term (current) drug therapy
CPT/HCPCS: 10040; 15000; 15002